=== PATIENT | male | born 1960 | race Caucasian/White ===

== ENCOUNTER 2017-05-12 09:11 | Inpatient (IN) | payer BC, OTHER ==
[~2017-05-12] VITALS: Ht 179.1 cm; Wt 105.4 kg
[~2017-05-12 09:11] MED LIST: AMOX875T20 PO; DIOV40TA PO; SYNT25TA PO; ZOVI400T15 PO
[2017-05-12 09:27] VITALS: BP 147/75; PULSE 94; RESP 16; TEMP 99.9; O2SAT 96
[2017-05-12] MEDS ORDERED: thyroid med (09:37)
[2017-05-12] MEDS ORDERED: htn med (09:37)
[2017-05-12] MEDS ORDERED: SODIUM CHLOR 0.9% 1000 ML INJ 1,000 ML IV SCH (09:41)
--- NOTE | 2017-05-12 09:44 | PD ---
HPI Chief Complaint: Back/ Neck Pain or Injury Time Seen by Provider: 09:35 Travel History International Travel<30 days: No Contact w/Intl Traveler<30days: No Traveled to known affect area: No History of Present Illness HPI This is a 56-year-old male who presents for evaluation. He reports that 4 days ago he developed some diarrhea and mild pain in his lower abdomen and back. The diarrhea resolved after one day but he is been primarily on the liquid diet since then. He is now having pain kind of focally localized to the right lower back and abdomen. He's been having chills at home as well. Pain is an aching pain which is constant, no aggravating or alleviating factors. He denies any nausea, vomiting, constipation, testicular or scrotal pain, dysuria. His primary care physician is Dr. Yao. [facility] Past Medical History Diminished Hearing: No Hypertension: Yes Past Surgical History Tonsillectomy: Yes ( A CHILD) Other Surgery: Yes (INGUINAL HERNIA REPAIR) Social History Alcohol Use: Yes (OCCASIONALLY) Tobacco Use: No Substance Use: No Allergies-Medications (Allergen,Severity, Reaction): Coded Allergies: No Known Allergies (Verified Adverse Reaction, Unknown, 05/12/17) Reported Meds & Prescriptions Reported Meds & Active Scripts Active Reported [thyroid med] [htn med] Review of Systems Except as stated in HPI: all other systems reviewed are Neg Physical Exam Narrative GENERAL: Well-developed well-nourished male in no acute distress SKIN: Warm and dry. HEAD: Atraumatic. Normocephalic. EYES: Pupils equal and round. No scleral icterus. No injection or drainage. ENT: No nasal bleeding or discharge. Mucous membranes pink and moist. NECK: Trachea midline. No JVD. CARDIOVASCULAR: Regular rate and rhythm. No murmur appreciated. RESPIRATORY: No accessory muscle use. Clear to auscultation. Breath sounds equal bilaterally. GASTROINTESTINAL: Abdomen soft, focal right lower quadrant tenderness without guarding. No CVA tenderness. MUSCULOSKELETAL: No obvious deformities. No edema. No tenderness to palpation to the back. NEUROLOGICAL: Awake and alert. No obvious cranial nerve deficits. Motor grossly within normal limits. Normal speech. PSYCHIATRIC: Appropriate mood and affect; insight and judgment normal. Data Data Last Documented VS Vital Signs Date Time Temp Pulse Resp B/P (MAP) Pulse Ox O2 Delivery O2 Flow Rate FiO2 05/12/17 09:55 96 05/12/17 09:27 99.9 94 16 147/75 (99) Orders Orders Complete Blood Count With Diff (05/12/17 09:41) Comprehensive Metabolic Panel (05/12/17 09:41) Lipase (05/12/17 09:41) Urinalysis - C+S If Indicated (05/12/17 09:41) Ct Abd/Pel W Iv Contrast(Rout) (05/12/17 09:41) Iv Access Insert/Monitor (05/12/17 09:41) Ecg Monitoring (05/12/17 09:41) Oximetry (05/12/17 09:41) Sodium Chloride 0.9% Flush (Ns Flush) (05/12/17 09:45) Sodium Chlor 0.9% 1000 Ml Inj (Ns 1000 M (05/12/17 09:41) Iohexol 350 Inj (Omnipaque 350 Inj) (05/12/17 10:34) Act Partial Throm Time (Ptt) (05/12/17 10:43) Prothrombin Time / Inr (Pt) (05/12/17 10:43) Piperacil-Tazo 4.5 Gm Premix (Zosyn 4.5 (05/12/17 11:15) Electrocardiogram (05/12/17 ) Consult General Surgery (05/12/17 ) (Hub Use Only)Inp Phy Cons/Ref (05/12/17 ) Admit Order (Ed Use Only) (05/12/17 12:03) Labs Laboratory Tests Test 05/12/17 09:45 05/12/17 10:50 White Blood Count 18.0 TH/MM3 Red Blood Count 4.26 MIL/MM3 Hemoglobin 14.8 GM/DL Hematocrit 42.4 % Mean Corpuscular Volume 99.5 FL Mean Corpuscular Hemoglobin 34.7 PG Mean Corpuscular Hemoglobin Concent 34.9 % Red Cell Distribution Width 11.8 % Platelet Count 149 TH/MM3 Mean Platelet Volume 9.1 FL CBC Comment AUTO DIFF Differential Total Cells Counted 100 Neutrophils % (Manual) 82 % Lymphocytes % 11 % Monocytes % 7 % Neutrophils # (Manual) 14.8 TH/MM3 Differential Comment FINAL DIFF MANUAL Platelet Estimate NORMAL Platelet Morphology Comment NORMAL Red Cell Morphology Comment NORMAL Urine Color YELLOW Urine Turbidity CLEAR Urine pH 6.0 Urine Specific [place] 1.005 Urine Protein NEG mg/dL Urine Glucose (UA) NEG mg/dL Urine Ketones NEG mg/dL Urine Occult Blood TRACE Urine Nitrite NEG Urine Bilirubin NEG Urine Leukocyte Esterase NEG Urine WBC 0-2 /hpf Microscopic Urinalysis Comment CULT NOT INDICATED Blood Urea Nitrogen 13 MG/DL Creatinine 1.30 MG/DL Random Glucose 178 MG/DL Total Protein 8.3 GM/DL Albumin 3.7 GM/DL Calcium Level 8.9 MG/DL Alkaline Phosphatase 48 U/L Aspartate Amino Transf (AST/SGOT) 28 U/L Alanine Aminotransferase (ALT/SGPT) 58 U/L Total Bilirubin 1.6 MG/DL Sodium Level 132 MEQ/L Potassium Level 3.9 MEQ/L Chloride Level 97 MEQ/L Carbon Dioxide Level 27.0 MEQ/L Anion Gap 8 MEQ/L Estimat Glomerular Filtration Rate 57 ML/MIN Lipase 146 U/L Prothrombin Time 12.7 SEC Prothromb Time International Ratio 1.1 RATIO Activated Partial Thromboplast Time 31.0 SEC MDM Medical Decision Making Medical Screen Exam Complete: Yes Emergency Medical Condition: Yes Medical Record Reviewed: Yes Differential Diagnosis Appendicitis, gastroenteritis, ureteral stone, pyelonephritis, muscle strain, shingles, colitis Narrative Course On examination the patient has focal right lower quadrant tenderness with no other reproducible pain on palpation. Certainly, given his myalgias and low- grade fevers, appendicitis would be on the differential. Plan is for lab work, urinalysis, CT abdomen and pelvis. CT abdomen and pelvis reveals CONCLUSION: 1. Acute appendicitis with an obstructing appendicolith and significant periappendiceal inflammation and fluid stranding. 2. Advanced hepatic steatosis. 3. 12 mm right renal cyst. The patient has a WBC count of 18. The patient was given Zosyn, IV fluids. The patient was admitted to the hospitalist, discussed with the surgeon. Diagnosis Primary Impression: Appendicitis Qualified Codes: K35.80 - Unspecified acute appendicitis Admitting Information Admitting Physician Requests: Mg Valentino May 12, 2017 09:44
[2017-05-12] MEDS ORDERED: SODIUM CHLORIDE 0.9% FLUSH 10 ML FLUSH IV FLUSH PRN ×2 (09:45→12:15)
[2017-05-12 09:55] VITALS: O2SAT 96
[2017-05-12 09:55] LABS: GLUCOSE,URINE NEG (NEG); HEMATOCRIT 42.4 % (39.0-51.0); KETONE, URINE NEG (NEG); MEAN CELL VOLUME 99.5 FL (80.0-100.0); MEAN CORPUSCULAR HEMOGLOBIN 34.7 PG (27.0-34.0); MEAN CORPUSCULAR HGB CONC 34.9 % (32.0-36.0); NITRITE,URINE NEG (NEG); PLATELET COUNT 149 TH/MM3 (150-450); RED BLOOD COUNT 4.26 MIL/MM3 (4.50-5.90); RED CELL DISTRIBUTION WIDTH 11.8 % (11.6-17.2)
[2017-05-12 09:56] LABS: HEMO FLAGS AUTO DIFF
[2017-05-12 10:01] LABS: BLOOD, URINE TRACE (NEG)
[2017-05-12 10:02] LABS: URINE COLOR YELLOW (YELLW/STRAW)
[2017-05-12 10:04] LABS: COMMENT (UR) CULT NOT INDICATED; CULTURE IF INDICATED CULT NOT INDICATED; WBC, URINE 0-2 /hpf (0-5)
[2017-05-12 10:14] LABS: ANION GAP 8 MEQ/L (5-15); CHLORIDE 97 MEQ/L (98-107); POTASSIUM 3.9 MEQ/L (3.5-5.1); SODIUM (NA) 132 MEQ/L (136-145)
[2017-05-12 10:15] LABS: ALT (GPT) 58 U/L (12-78)
[2017-05-12 10:16] LABS: AST (GOT) 28 U/L (15-37); BLOOD UREA NITROGEN 13 MG/DL (7-18); GLOMERULAR FILTRATION RATE 57 ML/MIN (>89)
[2017-05-12 10:18] LABS: ALKALINE PHOSPHATASE 48 U/L (45-117)
[2017-05-12 10:25] LABS: TOTAL BILIRUBIN ADULT 1.6 MG/DL (0.2-1.0)
[2017-05-12 10:26] LABS: NEUTROPHIL # MANUAL DIFF 14.8 TH/MM3 (1.8-7.7); POLYS (SEG NEUTROPHILS) 82 % (16-70); WBC DIFF SAMPLE 100
[2017-05-12 10:27] LABS: PLATELET MORPHOLOGY NORMAL (NORMAL)
[2017-05-12 10:28] LABS: PLATELET ESTIMATE SMEAR NORMAL (NORMAL); SCAN/DIFF FINAL DIFF MANUAL
[2017-05-12] MEDS ORDERED: IOHEXOL 350 MG/ML 10 ML VIAL (for RAD DIAG) IVCONTRAST ONE (10:34)
--- NOTE | 2017-05-12 11:08 | RADRPT ---
EXAM DATE/TIME: 05/12/2017 10:28 [place] COMPARISON: No previous studies available for comparison. INDICATIONS : Right lower quadrant and right low back pain, diarrhea x 4 days. IV CONTRAST: 85 cc Omnipaque 350 (iohexol) IV ORAL CONTRAST: No oral contrast ingested. RADIATION DOSE: 20.60 CTDIvol (mGy) MEDICAL HISTORY : Hypertension. SURGICAL HISTORY : Inguinal hernia repair. ENCOUNTER: Initial ACUITY: 4 - 6 days PAIN SCALE: 7/10 LOCATION: Right lower quadrant TECHNIQUE: Volumetric scanning of the abdomen and pelvis was performed. Using automated exposure control and ad justment of the mA and/or kV according to patient size, radiation dose was kept as low as reasonably achievable to obtain optimal diagnostic quality images. DICOM format image data is available electro nically for review and comparison. FINDINGS: LOWER LUNGS: The visualized lower lungs are clear. LIVER: The liver is diffusely hypodense. There no focal lesions or evidence of biliary duct dilatation. Ther e are no calcified stones. SPLEEN: Normal size without lesion. PANCREAS: Within normal limits. KIDNEYS: Normal in size and shape. There is no mass, stone or hydronephrosis. 12 mm cyst is identified in the right kidney. ADRENAL GLANDS: Within normal limits. VASCULAR: There is no aortic aneurysm. BOWEL/MESENTERY: Extensive pericecal and periappendiceal inflammation and fluid stranding is identified in right lower quadrant. A calculus is identified in the proximal appendix. The distal appendix is dilated and demo nstrates diffuse wall thickening. Measures 1.7 cm in diameter. There is no evidence of free air. Inte stinal tract is otherwise unremarkable. ABDOMINAL WALL: Within normal limits. RETROPERITONEUM: There is no lymphadenopathy. BLADDER: No wall thickening or mass. REPRODUCTIVE: Within normal limits. INGUINAL: There is no lymphadenopathy or hernia. MUSCULOSKELETAL: Within normal limits for patient age. CONCLUSION: 1. Acute appendicitis with an obstructing appendicolith and significant periappendiceal inflammation and fluid stranding. 2. Advanced hepatic steatosis. 3. 12 mm right renal cyst. Crow Quintana MD on May 12, 2017 at 11:01 Board Certified Radiologist. This report was verified electronically.
[2017-05-12 11:09] LABS: INTERNATIONAL NORMALIZED RATIO 1.1 RATIO; PROTHROMBIN TIME - PATIENT 12.7 SEC (9.8-11.6)
[2017-05-12] MEDS ORDERED: PIPERACIL-TAZO 4.5 GM PREMIX 100 ML IV ONE (11:15)
[2017-05-12] MEDS ORDERED: ONDANSETRON HCL 4 MG/2 ML VIAL IVP PRN (12:15)
[2017-05-12] MEDS ORDERED: MORPHINE SULFATE 8 MG/ML INJ IV PUSH PRN ×2 (12:15→12:30)
[2017-05-12] MEDS ORDERED: NALOXONE HCL 0.4 MG/ML AMP IV PUSH PRN ×2 (12:15)
[2017-05-12] MEDS ORDERED: MAGNESIUM HYDROXIDE SUSP 30 ML CUP PO PRN (12:15)
[2017-05-12] MEDS ORDERED: SENNOSIDES 8.6 MG TAB PO PRN (12:15)
[2017-05-12] MEDS ORDERED: LACTULOSE SYRUP 20 GM/30 ML CUP PO PRN (12:15)
[2017-05-12] MEDS ORDERED: BISACODYL 10 MG SUPP RECTAL PRN (12:15)
[2017-05-12] MEDS ORDERED: MORPHINE SULFATE 4 MG/ML INJ IV PUSH PRN (12:15)
[2017-05-12] MEDS ORDERED: MORPHINE SULFATE 2 MG/ML INJ IV PUSH PRN (12:45)
[2017-05-12] MEDS ORDERED: BUPIVACAINE/EPINEPHRINE 0.5% PF 30 ML VIAL ONE (13:41)
[2017-05-12] MEDS ORDERED: LEVO75TA3 PO (13:45)
[2017-05-12] MEDS ORDERED: LISI20TA PO (13:45)
[2017-05-12] MEDS ORDERED: FAMOTIDINE 20 MG/2 ML VIAL ONE (14:13)
[2017-05-12] MEDS ORDERED: MIDAZOLAM HCL 2 MG/2 ML VIAL ONE (14:13)
[2017-05-12] MEDS ORDERED: LACTATED RINGER'S 1000 ML INJ 1,000 ML ONE (14:13)
--- NOTE | 2017-05-12 14:23 | HHI.PR ---
Immediate Post Op Note Procedure Date: May 12, 2017 Pre Op Diagnosis: acute appendicitis Post Op Diagnosis: same Surgeon: Jack Dee MD Grease Cup Filler(s): see or sheet Procedure: lap appy Findings: distended inflamed appendix Complications: none Specimen(s) removed: appendix Estimated blood loss: 5cc Anesthesia: General IVF Patient to: PACU Patient Condition: Good Jack Dee MD May 12, 2017 14:23
[2017-05-12 15:15] VITALS: BP 130/63; PULSE 80; RESP 20; TEMP 100.1; O2SAT 96
[2017-05-12 15:54] VITALS: PULSE 98
[2017-05-12] MEDS ORDERED: ACETAMINOPHEN 1000 MG/100 ML 100 ML IV ONE (16:04)
[2017-05-12] MEDS ORDERED: *Lactated Ringer's INJ 1,000 ML ONE (17:16)
[2017-05-12] MEDS: SODIUM CHLOR 0.9% 1000 ML INJ 1,000 ML IV SCH (18:07)
--- NOTE | 2017-05-12 18:16 | HHI.HP ---
[facility] Ronnie Elizabeth MD Admission Diagnosis acute appendicitis Diagnoses: Travel History International Travel<30 Days: No Contact w/Intl Traveler <30 Da: No Traveled to Known Affected Are: No History of Present Illness 56-year-old male with a history of hypertension, hypothyroidism, who presents with a four-day history of worsening crampy nonradiating right lower quadrant pain. He denies any nausea or vomiting however does report decreased appetite, as well as unmeasured fevers over the past 3 days. Ports initially having diarrhea 4 days ago, however this resolved. Denies any chest pain or shortness of breath. Patient has had appendectomy today, and says that his pain has subsequently much improved. Review of Systems Except as stated in HPI: all other systems reviewed are Neg Past Family Social History Past Medical History Hypertension Hypothyroidism Past Surgical History Hernia repair Tonsillectomy Reported Medications Lisinopril/HCTZ 2011 0.5. One tablet by mouth daily Levothyroxine 75 g by mouth daily. Allergies: Coded Allergies: No Known Allergies (Verified Adverse Reaction, Unknown, 05/12/17) Family History Mother with history of stroke. Father with heart disease beginning at age 75. Both parents smoked heavily. Social History Lifelong nonsmoker. Social drinker less than 3 drinks. Denies any history of withdrawal. No illicit drugs. Physical Exam Vital Signs Vital Signs Date Time Temp Pulse Resp B/P (MAP) Pulse Ox O2 Delivery O2 Flow Rate FiO2 05/12/17 16:45 101.7 91 16 136/64 (88) 96 Nasal Cannula 3 05/12/17 16:30 94 16 141/68 (92) 94 Nasal Cannula 3 05/12/17 16:15 98 16 138/71 (93) 98 Simple Mask 5 05/12/17 16:00 88 16 137/69 (91) 98 Simple Mask 5 05/12/17 15:54 101.4 98 16 146/81 (102) 97 Simple Mask 5 05/12/17 15:54 98 05/12/17 15:15 100.1 80 20 130/63 (85) 96 05/12/17 13:37 104.1 112 20 155/80 (105) 95 05/12/17 09:55 96 05/12/17 09:27 99.9 94 16 147/75 (99) 96 Physical Exam GENERAL: This is a well-nourished, well-developed patient, in no apparent distress. Alert and oriented 3. SKIN: No rashes, ecchymoses or lesions. Cool and dry. HEAD: Atraumatic. Normocephalic. No temporal or scalp tenderness. EYES: Pupils equal round and reactive. Extraocular motions intact. No scleral icterus. No injection or drainage. ENT: Nose without bleeding, purulent drainage or septal hematoma. Throat without erythema, tonsillar hypertrophy or exudate. Uvula midline. Airway patent. NECK: Trachea midline. No JVD or lymphadenopathy. Supple, nontender, no meningeal signs. CARDIOVASCULAR: Regular rate and rhythm without murmurs, gallops, or rubs. RESPIRATORY: Clear to auscultation. Breath sounds equal bilaterally. No wheezes , rales, or rhonchi. GASTROINTESTINAL: Postoperative abdomen. LELA drain in place with serosanguineous fluid. Hypoactive bowel sounds. Nontender to moderate palpation. MUSCULOSKELETAL: Extremities without clubbing, cyanosis, or edema. No joint tenderness, effusion, or edema noted. No calf tenderness. Negative Homans sign bilaterally. NEUROLOGICAL: Awake and alert. Cranial nerves II through XII intact. Motor and sensory grossly within normal limits. Five out of 5 muscle strength in all muscle groups. Normal speech. Laboratory Laboratory Tests Test 05/12/17 09:45 05/12/17 10:50 05/12/17 12:32 White Blood Count 18.0 Red Blood Count 4.26 Hemoglobin 14.8 Hematocrit 42.4 Mean Corpuscular Volume 99.5 Mean Corpuscular Hemoglobin 34.7 Mean Corpuscular Hemoglobin Concent 34.9 Red Cell Distribution Width 11.8 Platelet Count 149 Mean Platelet Volume 9.1 CBC Comment AUTO DIFF Differential Total Cells Counted 100 Neutrophils % (Manual) 82 Lymphocytes % 11 Monocytes % 7 Neutrophils # (Manual) 14.8 Differential Comment FINAL DIFF MANUAL Platelet Estimate NORMAL Platelet Morphology Comment NORMAL Red Cell Morphology Comment NORMAL Urine Color YELLOW Urine Turbidity CLEAR Urine pH 6.0 Urine Specific [place] 1.005 Urine Protein NEG Urine Glucose (UA) NEG Urine Ketones NEG Urine Occult Blood TRACE Urine Nitrite NEG Urine Bilirubin NEG Urine Leukocyte Esterase NEG Urine WBC 0-2 Microscopic Urinalysis Comment CULT NOT INDICATED Blood Urea Nitrogen 13 Creatinine 1.30 Random Glucose 178 Total Protein 8.3 Albumin 3.7 Calcium Level 8.9 Alkaline Phosphatase 48 Aspartate Amino Transf (AST/SGOT) 28 Alanine Aminotransferase (ALT/SGPT) 58 Total Bilirubin 1.6 Sodium Level 132 Potassium Level 3.9 Chloride Level 97 Carbon Dioxide Level 27.0 Anion Gap 8 Estimat Glomerular Filtration Rate 57 Lipase 146 Prothrombin Time 12.7 Prothromb Time International Ratio 1.1 Activated Partial Thromboplast Time 31.0 Lactic Acid Level 1.3 Result Diagram: 05/12/1745 05/12/1745 Imaging Last Impressions Abdomen/Pelvis CT 05/12/17940 Signed Impressions: Service Date/Time: May 10:28 - CONCLUSION: 1. Acute appendicitis with an obstructing appendicolith and significant periappendiceal inflammation and fluid stranding. 2. Advanced hepatic steatosis. 3. 12 mm right renal cyst. MD Johnson Senior VTE Risk Assessment Caprini VTE Risk Assessment: No/Low Risk (score <= 1) Caprini Risk Assessment Model Point Value = 1 Point Value = 2 Point Value = 3 Point Value = 5 Age 41-60 Minor surgery BMI > 25 kg/m2 Swollen legs Varicose veins or History of unexplained or recurrent spontaneous Oral contraceptives or hormone replacement Sepsis (< 1 month) Serious lung disease, including pneumonia (< 1 month) Abnormal pulmonary function Acute myocardial infarction Congestive heart failure (< 1 month) History of inflammatory bowel disease Medical patient at bed rest Age 61-74 Arthroscopic surgery Major open surgery (> 45 min) Laparoscopic surgery (> 45 min) Malignancy Confined to bed (> 72 hours) Immobilizing plaster cast Central venous access Age >= 75 History of VTE Family history of VTE Factor V Leiden Prothrombin [id number] Lupus anticoagulant Anticardiolipin antibodies Elevated serum homocysteine Heparin-induced thrombocytopenia Other congenital or acquired thrombophilia Stroke (< 1 month) Elective arthroplasty Hip, pelvis, or leg fracture Acute spinal cord injury (< 1 month) Prophylaxis Regimen Total Risk Factor Score Risk Level Prophylaxis Regimen 0-1 Low Early ambulation 2 Moderate Order ONE of the following: *Sequential Compression Device (SCD) *Heparin 5000 units SQ BID 3-4 Higher Order ONE of the following medications: *Heparin 5000 units SQ TID *Enoxaparin/Lovenox 40 mg SQ daily (WT < 150 kg, CrCl > 30 mL/min) *Enoxaparin/Lovenox 30 mg SQ daily (WT < 150 kg, CrCl > 10-29 mL/min) *Enoxaparin/Lovenox 30 mg SQ BID (WT < 150 kg, CrCl > 30 mL/min) AND/OR *Sequential Compression Device (SCD) 5 or more Highest Order ONE of the following medications: *Heparin 5000 units SQ TID (Preferred with Epidurals) *Enoxaparin/Lovenox 40 mg SQ daily (WT < 150 kg, CrCl > 30 mL/min) *Enoxaparin/Lovenox 30 mg SQ daily (WT < 150 kg, CrCl > 10-29 mL/min) *Enoxaparin/Lovenox 30 mg SQ BID (WT < 150 kg, CrCl > 30 mL/min) AND *Sequential Compression Device (SCD) Assessment and Plan Assessment and Plan //Sepsis Leukocytosis 18, tachycardia 112 on admission, fever 104.1 on admission. Acute appendicitis on CT. -Lactate 1.3 on admission. -IDSA does not recommend blood cultures on patients with intra-abdominal infection. -Continue Zosyn. IV fluids. //Acute appendicitis. -CT as above with stranding. -Status post appendectomy. -LLEA drain in place. -General surgery following. Follow-up for return of bowel function. //Hypertension. Blood pressure currently acceptable. We'll hold off on blood pressure meds in the setting of sepsis. Continue to monitor //Hypothyroidism. Chronic. -Check TSH. Continue home Synthroid. //Elevated bilirubin. Check bilirubin components. This could be Gilbert secondary to decreased by mouth intake. //Hepatic steatosis. -Suspect this is chronic ZAVALETA . Would recommend discontinuation of alcohol completely. Follow with primary care as outpatient. //Hypoglycemia on admission. 175. Check A1c. //DVT prophylaxis. SCDs. AC As per surgical service. Discussed Condition With Patient, nurse, ED physician. Physician Certification 2 Midnight Certification Type: Admission for Inpatient Services Order for Inpatient Services The services are ordered in accordance with Medicare regulations or non- Medicare payer requirements, as applicable. In the case of services not specified as inpatient-only, they are appropriately provided as inpatient services in accordance with the 2-midnight benchmark. Estimated LOS (days): 2 days is the estimated time the patient will need to remain in the hospital, assuming treatment plan goals are met and no additional complications. Post-Hospital Plan: Home Jerry Saleem MD May 12, 2017 18:15
[2017-05-12] MEDS: PIPERACIL-TAZO 3.375 GM PREMIX 50 ML IV SCH (18:22)
[2017-05-12 18:28] LABS: INDIRECT BILIRUBIN 1.2 MG/DL (0.0-0.8)
[2017-05-12 20:00] VITALS: BP_SYST 112; BP_SYST 96; BP_DIAS 52; BP_DIAS 57; PULSE 63; PULSE 78; RESP 16; TEMP 97.8; TEMP 98; O2SAT 96; O2SAT 98
[2017-05-12] MEDS: SODIUM CHLORIDE 0.9% FLUSH 10 ML FLUSH IV FLUSH SCH (21:00)
--- NOTE | 2017-05-12 21:28 | MB ---
cc: ELLI RAYMOND MD DATE OF CONSULTATION 05/12/2017 REASON FOR CONSULTATION Right lower quadrant abdominal pain, acute appendicitis. HISTORY OF PRESENT ILLNESS The patient is 56-year-old male who presents with acute onset of right lower quadrant pain. He states the pain started approximately 4 days ago, continued to get worse, currently is 7/10, was an 8/10, some improvement with IV pain medications, better with lying still, worse with movement. The pain is somewhat sharp. He has never had pain quite like this before. He does have some intermittent fevers. He came to the emergency department for further evaluation including WBC of 18,000. A CT scan showing acute appendicitis. Therefore, surgery was consulted for further evaluation. PAST MEDICAL HISTORY Hypertension. PAST SURGICAL HISTORY Tonsillectomy, bilateral inguinal hernia repair. SOCIAL HISTORY Occasional EtOH. Denies smoking or IVDA. ALLERGIES NO KNOWN DRUG ALLERGIES. MEDICATIONS See EMR. FAMILY HISTORY Denies diabetes or hypertension. REVIEW OF SYSTEMS GENERAL: Complains of fevers and chills. HEENT: Denies eye pain, ear pain. NECK: Denies swelling or pain. LUNGS: Denies cough or wheeze. HEART: Denies palpitation or chest pain. ABDOMEN: Complains of abdominal pain. Denies nausea or vomiting. : Denies dysuria, hematuria. ENDOCRINE: Denies polyuria, polydipsia. ___ hypothyroid. NEUROLOGIC: Denies numbness, tingling. INTEGUMENT: Denies any new masses or lesions. PHYSICAL EXAMINATION GENERAL: The patient no acute distress. VITAL SIGNS: Temperature 99.9, pulse 94, respirations 16, blood pressure 147/75, saturation 96%. HEENT: PERRLA, pupils equal, round, reactive. NECK: Supple. Trachea midline. LUNGS: Clear to auscultation bilateral expansion. HEART: S1-S2 regular rhythm. ABDOMEN: Positive tenderness to palpation right lower quadrant, localize rebound. Well-healed bilateral inguinal surgical scars. EXTREMITIES: Warm, well-perfused. INTEGUMENT: No obvious masses or lesions. BACK: Normal curve. No step-off. NEUROLOGIC: GCS of 15, 5/5 motor all extremities. PSYCH: Appropriate mood. Appropriate affect. LABORATORY AND DIAGNOSTIC DATA WBC 18,000, hemoglobin 14.8, hematocrit 42.4, platelets 149, sodium 132, potassium 3.9, chloride 97, BUN 13, creatinine 1.3, lactate 1.3, AST 28, ALT 58, alkaline phosphatase 48, lipase 146. INR 1.1. IMAGING STUDIES CT reviewed by me showing acute appendicitis, some straining inflammation. No obvious abscess. ASSESSMENT The patient is a 56-year-old male, acute onset right lower quadrant pain consistent with acute appendicitis. PLAN After full clinical, radiologic, laboratory workup the patient with above-named issues including acute appendicitis. Discussed with the patient in detail regarding operative intervention and the need for a laparoscopic appendectomy. Further discussed with the patient given the long duration of timing that the patient may have already perforated his appendix. If this is the case discussed with the patient that he will probably need to be in the hospital for a few extra days and a possible LELA drain placement. However, we are unsure of this until actually the time of surgery. Currently, the patient is n.p.o., IV fluids, pain control, IV antibiotics and again will plan to take the patient to the operating room for laparoscopic appendectomy. MD PRAFUL Li/MIRIAM /5:31 PM /9:17 PM
[2017-05-12 21:54] LABS: HEMOGLOBIN A1a 1.3 %; HEMOGLOBIN A1b 0.8 %; HEMOGLOBIN Ao 84.1 %; HEMOGLOBIN F 0.9 %; HEMOGLOBIN LA1C 2.2 %; HEMOGLOBIN P3 3.7 %
[2017-05-13] VITALS: BP 96/52; PULSE 63; RESP 16; TEMP 98; O2SAT 98
[2017-05-13] MEDS: PIPERACIL-TAZO 3.375 GM PREMIX 50 ML IV SCH ×3 (00:02→12:00)
[2017-05-13 04:00] VITALS: BP 110/65; PULSE 68; RESP 16; TEMP 98; O2SAT 98
[2017-05-13] MEDS: SODIUM CHLOR 0.9% 1000 ML INJ 1,000 ML IV SCH ×2 (05:05→08:03)
[2017-05-13] MEDS ORDERED: LEVOTHYROXINE SODIUM 75 MCG TAB PO SCH (06:00)
[2017-05-13] MEDS ORDERED: LEVA500T33 PO (07:53)
--- NOTE | 2017-05-13 08:05 | HHI.PR ---
cc: Jack Dee MD Subjective Subjective Notes DAILY PROGRESS NOTE FOR SURGICAL ATTENDING, DR. JI FOSTER Doing well Pain improved Objective Vitals/I&O Vital Signs Date Time Temp Pulse Resp B/P (MAP) Pulse Ox O2 Delivery O2 Flow Rate FiO2 05/13/17 04:00 98.0 68 16 110/65 (80) 98 05/12/17 16:45 Nasal Cannula 3 Labs Laboratory Tests Test 05/12/17 09:45 05/12/17 10:50 05/12/17 12:32 05/13/17 07:45 Mean Corpuscular Volume 99.5 FL Mean Corpuscular Hemoglobin 34.7 PG Mean Corpuscular Hemoglobin Concent 34.9 % Red Cell Distribution Width 11.8 % Mean Platelet Volume 9.1 FL CBC Comment AUTO DIFF Differential Total Cells Counted 100 Neutrophils % (Manual) 82 % Lymphocytes % 11 % Monocytes % 7 % Neutrophils # (Manual) 14.8 TH/MM3 Platelet Estimate NORMAL Platelet Morphology Comment NORMAL Red Cell Morphology Comment NORMAL Urine Color YELLOW Urine Turbidity CLEAR Urine pH 6.0 Urine Specific Desmet 1.005 Urine Protein NEG mg/dL Urine Glucose (UA) NEG mg/dL Urine Ketones NEG mg/dL Urine Occult Blood TRACE Urine Nitrite NEG Urine Bilirubin NEG Urine Leukocyte Esterase NEG Urine WBC 0-2 /hpf Microscopic Urinalysis Comment CULT NOT INDICATED Estimat Glomerular Filtration Rate 57 ML/MIN Hemoglobin A1c 6.8 % Blood Urea Nitrogen 13 MG/DL Creatinine 1.30 MG/DL Random Glucose 178 MG/DL Total Protein 8.3 GM/DL Albumin 3.7 GM/DL Calcium Level 8.9 MG/DL Alkaline Phosphatase 48 U/L Aspartate Amino Transf (AST/SGOT) 28 U/L Alanine Aminotransferase (ALT/SGPT) 58 U/L Total Bilirubin 1.6 MG/DL Direct Bilirubin 0.4 MG/DL Sodium Level 132 MEQ/L Potassium Level 3.9 MEQ/L Chloride Level 97 MEQ/L Carbon Dioxide Level 27.0 MEQ/L Indirect Bilirubin 1.2 MG/DL Lipase 146 U/L Thyroid Stimulating Hormone 3rd Gen 1.350 uIU/ML Prothrombin Time 12.7 SEC Prothromb Time International Ratio 1.1 RATIO Activated Partial Thromboplast Time 31.0 SEC Lactic Acid Level 1.3 mmol/L Laboratory Tests Test 05/12/17 09:45 05/12/17 10:50 05/12/17 12:32 05/13/17 07:45 White Blood Count 18.0 Red Blood Count 4.26 Hemoglobin 14.8 Hematocrit 42.4 Mean Corpuscular Volume 99.5 Mean Corpuscular Hemoglobin 34.7 Mean Corpuscular Hemoglobin Concent 34.9 Red Cell Distribution Width 11.8 Platelet Count 149 Mean Platelet Volume 9.1 CBC Comment AUTO DIFF Differential Total Cells Counted 100 Neutrophils % (Manual) 82 Lymphocytes % 11 Monocytes % 7 Neutrophils # (Manual) 14.8 Differential Comment FINAL DIFF MANUAL Platelet Estimate NORMAL Platelet Morphology Comment NORMAL Red Cell Morphology Comment NORMAL Urine Color YELLOW Urine Turbidity CLEAR Urine pH 6.0 Urine Specific Desmet 1.005 Urine Protein NEG Urine Glucose (UA) NEG Urine Ketones NEG Urine Occult Blood TRACE Urine Nitrite NEG Urine Bilirubin NEG Urine Leukocyte Esterase NEG Urine WBC 0-2 Microscopic Urinalysis Comment CULT NOT INDICATED Blood Urea Nitrogen 13 Creatinine 1.30 Random Glucose 178 Total Protein 8.3 Albumin 3.7 Calcium Level 8.9 Alkaline Phosphatase 48 Aspartate Amino Transf (AST/SGOT) 28 Alanine Aminotransferase (ALT/SGPT) 58 Total Bilirubin 1.6 Direct Bilirubin 0.4 Sodium Level 132 Potassium Level 3.9 Chloride Level 97 Carbon Dioxide Level 27.0 Anion Gap 8 Estimat Glomerular Filtration Rate 57 Hemoglobin A1c 6.8 Indirect Bilirubin 1.2 Lipase 146 Thyroid Stimulating Hormone 3rd Gen 1.350 Prothrombin Time 12.7 Prothromb Time International Ratio 1.1 Activated Partial Thromboplast Time 31.0 Lactic Acid Level 1.3 Radiology Last Impressions Abdomen/Pelvis CT 05/12/17 0941 Signed Impressions: Service Date/Time: , May 12, 2017 10:28 - CONCLUSION: 1. Acute appendicitis with an obstructing appendicolith and significant periappendiceal inflammation and fluid stranding. 2. Advanced hepatic steatosis. 3. 12 mm right renal cyst. Crow Quintana MD Cardiovascular: Regular Lungs: Clear Abdomen: Other, Post-op tenderness (LELA in place) Extremities: Perfused, SCD's on A/P Problem List: (1) Status post laparoscopic appendectomy ICD Codes: Z90.49 - Acquired absence of other specified parts of digestive tract (2) Appendicitis ICD Codes: K37 - Unspecified appendicitis Status: Acute Assessment and Plan A 56-year-old gentleman status post laparoscopic appendectomy Doing well Fair amount of output and LELA We'll give prescription prescription for pain and antibiotic therapy See if he does okay today possible discharge later AFTERNOON Follow-up with Dr. eDe next week Discharge Planning Possible discharge in a 24 hours Attending Statement NOTE FOR SURGICAL ATTENDING, DR. JI D. RANDA I attest that I had a [id number] encounter with the patient on the same day, and personally performed and documented my assessment and findings in the medical record. The following services were provided during this hospital visit: Chart data review, vital sign assessments/reviewing monitor data Review of consultations notes if present. Medication orders/review and/or management Ordering and/or reviewing lab tests Ordering and/or interpreting/reviewing x-rays and/or diagnostic studies Care of the patient and discussion of the patient with the care team Documentation time To help prompt me to consider important information that might be impacting today's encounter and assessment, information from prior notes written by myself or my colleagues may have been "brought forward/copy and pasted" into today's note. Problem Qualifiers (1) Appendicitis: Qualified Codes: K35.3 - Acute appendicitis with localized peritonitis Ji Foster MD May 13, 2017 08:05
[2017-05-13 08:11] LABS: AUTOMATED NEUTROPHIL # 11.2 TH/MM3 (1.8-7.7); BASOPHIL % 0.2 % (0.0-2.0); EOSINOPHIL % 0.1 % (0.0-4.0); HEMATOCRIT 36.5 % (39.0-51.0); LYMPH % 7.8 % (9.0-44.0); MEAN CELL VOLUME 100.2 FL (80.0-100.0); MEAN CORPUSCULAR HEMOGLOBIN 34.7 PG (27.0-34.0); MEAN CORPUSCULAR HGB CONC 34.7 % (32.0-36.0); MONO % 8.5 % (0.0-8.0); NEUT % 83.4 % (16.0-70.0); PLATELET COUNT 137 TH/MM3 (150-450); RED BLOOD COUNT 3.64 MIL/MM3 (4.50-5.90); WHITE BLOOD COUNT 13.3 TH/MM3 (4.0-11.0)
[2017-05-13 08:13] LABS: CHLORIDE 101 MEQ/L (98-107); POTASSIUM 3.8 MEQ/L (3.5-5.1); SODIUM (NA) 136 MEQ/L (136-145)
[2017-05-13 08:18] LABS: HEMO FLAGS AUTO DIFF
[2017-05-13 08:26] VITALS: BP 108/61; PULSE 73; RESP 18; TEMP 98; O2SAT 95
[2017-05-13 08:27] LABS: ALKALINE PHOSPHATASE 42 U/L (45-117); ALT (GPT) 42 U/L (12-78); ANION GAP 5 MEQ/L (5-15); AST (GOT) 19 U/L (15-37); BICARBONATE 29.7 MEQ/L (21.0-32.0); BLOOD UREA NITROGEN 19 MG/DL (7-18); GLOMERULAR FILTRATION RATE 57 ML/MIN (>89); TOTAL BILIRUBIN ADULT 1.1 MG/DL (0.2-1.0)
[2017-05-13] MEDS: SODIUM CHLORIDE 0.9% FLUSH 10 ML FLUSH IV FLUSH SCH (09:00)
--- NOTE | 2017-05-13 09:40 | MP ---
cc: ELLI DEE MD DATE OF SURGERY: 05/12/2017 PREOPERATIVE DIAGNOSIS Acute appendicitis. POSTOPERATIVE DIAGNOSIS Acute appendicitis. PROCEDURE PERFORMED Laparoscopic appendectomy. SURGEON Dr. Elli Dee. 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 ANESTHESIA General endotracheal. IV FLUIDS See anesthesia sheet. ESTIMATED BLOOD LOSS 10 cc. DRAINS 19 Armenian Darren drain. COMPLICATIONS None. WOUND CLASSIFICATION Contaminated. FINDINGS Distended, indurated and necrotic appendix with no overt perforation. INDICATION The patient is a 56-year-old male who presents with acute onset of right lower quadrant pain. He stated the pain was initially periumbilical and radiated to the right lower quadrant approximately four days ago. The pain continued to progress. The patient also had fevers. He came to the emergency department for further evaluation including CT scan showing acute appendicitis and also leukocytosis of 18,000, therefore a decision was made for laparoscopic appendectomy. DETAILS OF PROCEDURE The patient was taken to the operating suite and placed in supine position. He was prepped and draped in the usual sterile fashion after induction of general endotracheal anesthesia. A brief timeout was done stating correct patient, procedure and surgical site, and we were all in agreement with this. Attention was first directed to the umbilicus where a stab hernán incision made with an 11 blade after injection of local anesthetic. A Veress needle was used to insufflate the abdomen with confirmation of intra-abdominal placement prior with a saline drop test. The abdomen was insufflated with two liters of pneumoperitoneum. On cursory inspection, after changing the Veress needle to a 5 mm Visiport trocar, there was no evidence of injury. Two other trocars were placed, one 5 mm suprapubic followed by a left lower quadrant 12 mm trocar. The patient was placed in Trendelenburg and airplaned to the left. The right lower quadrant was identified. There was noted to be omentum draped over with several adhesions to the right lower quadrant. There was an obvious inflammatory and indurated process. Upon mobilization of the cecum we noted the appendix and also the terminal ileum sitting on top of this. Tedious dissection was done to mobilize the appendix from its adhesions and again somewhat necrotic and indurated looking. When this was done the base of the appendix was identified. A [place] was used to create a window at the mesoappendix at the base. A 35 Endo ANDREW stapler was used to transect the base of the mesoappendix using a white load. The mesoappendix was also transected as well. The appendix was placed in the appendix bag and removed from the left lower quadrant trocar. Suction irrigation was done until the affluent was clear and Bovie electrocautery was used to assure hemostasis. A 19 Armenian round Darren drain was placed in the suprapubic port site and placed in the right lower quadrant. The drain was secured with 2-0 nylon. The 12 mm port was closed with 0 Vicryl with a suture closure device. The rest of the ports were closed with 4-0 Monocryl subcuticular stitches. Sterile dressings were placed. The patient tolerated the procedure well. There was no intraoperative complications. All lap and instrument counts were correct at the end of the procedure. The patient was extubated and taken stable to the PACU. MD PRAFUL Li/CASTRO /3:46 PM /9:12 AM
[2017-05-13 10:26] LABS: BANDS 6 % (0-6); NEUTROPHIL # MANUAL DIFF 11.2 TH/MM3 (1.8-7.7); POLYS (SEG NEUTROPHILS) 78 % (16-70); WBC DIFF SAMPLE 100
[2017-05-13 10:27] LABS: DOHLE BODIES PRESENT (NONE SEEN); PLATELET ESTIMATE SMEAR LOW (NORMAL); PLATELET MORPHOLOGY NORMAL (NORMAL); ROULEAUX PRESENT (NORMAL); SCAN/DIFF FINAL DIFF MANUAL
[2017-05-13 12:22] VITALS: BP 126/66; PULSE 78; RESP 18; TEMP 99.3; O2SAT 98
[2017-05-13 16:00] VITALS: BP 125/82; PULSE 89; RESP 18; TEMP 98; O2SAT 99
[2017-05-13 16:42] VITALS: RESP 18
--- NOTE | 2017-05-13 18:26 | EKG ---
Date Performed: 05/12/2017 Time Performed: 11:21:57 PTAGE: 56 years EKG: Sinus rhythm POSSIBLE LEFT ATRIAL ENLARGEMENT NONSPECIFIC T-WAVE ABNORMALITY BORDERLINE ECG NO PREVIOUS TRACING DOCTOR: Indiana Villarreal Interpretating Date/Time 05/13/2017 18:18:20
--- NOTE | 2017-05-13 18:37 | HHI.PR ---
Subjective Remarks Patient says he is feeling great today. No pain. No chest pain or shortness of breath. He reports passing gas. Feels like going home. He says he has a flight on Tuesday, however subsequently he says he will cancel this. Objective Vital Signs Date Time Temp Pulse Resp B/P (MAP) Pulse Ox O2 Delivery O2 Flow Rate FiO2 05/13/17 16:42 18 05/13/17 16:00 98.0 89 18 125/82 (96) 99 05/13/17 12:22 99.3 78 18 126/66 (86) 98 05/13/17 10:47 18 05/13/17 08:26 98.0 73 18 108/61 (77) 95 05/13/17 04:00 98.0 68 16 110/65 (80) 98 05/13/17 00:00 98.0 63 16 96/52 (67) 98 05/12/17 20:00 97.8 78 16 112/57 (75) 96 I/O 05/12/17 05/12/17 05/12/17 05/13/17 05/13/17 05/13/17 07:00 15:00 23:00 07:00 15:00 23:00 Intake Total 400 ml 2600 ml 1614 ml 480 ml Output Total 370 ml 1430 ml Balance 400 ml 2230 ml 184 ml 480 ml Intake Oral 400 ml 360 ml 480 ml IV Total 400 ml 700 ml 1254 ml Other 1500 ml Output Urine Total 300 ml 1350 ml Drainage Total 60 ml 80 ml Estimated Blood Loss 10 ml # Voids 0 2 # Bowel Movements 0 Result Diagram: 05/13/17 0745 05/13/17 0745 Imaging Last Impressions Abdomen/Pelvis CT 05/12/17 0941 Signed Impressions: Service Date/Time: May 10:28 - CONCLUSION: 1. Acute appendicitis with an obstructing appendicolith and significant periappendiceal inflammation and fluid stranding. 2. Advanced hepatic steatosis. 3. 12 mm right renal cyst. Crow Quintana MD Objective Remarks GENERAL:sitting up in bed. Appears comfortable. Alert and oriented 3. SKIN: Warm and dry. HEAD: Normocephalic. EYES: No scleral icterus. No injection or drainage. NECK: Supple, trachea midline. No JVD. CARDIOVASCULAR: Regular rate and rhythm without murmurs, gallops, or rubs. RESPIRATORY: Breath sounds equal bilaterally. No accessory muscle use. GASTROINTESTINAL: Abdomen soft, non-tender, nondistended. LELA drain with small amount of serosanguineous fluid. MUSCULOSKELETAL: No cyanosis, or edema. BACK: Nontender without obvious deformity. No CVA tenderness. A/P Assessment and Plan //Sepsis Leukocytosis 18, tachycardia 112 on admission, fever 104.1 on admission. Acute appendicitis on CT. -Lactate 1.3 on admission. -IDSA does not recommend blood cultures on patients with intra-abdominal infection. -Continue Zosyn. IV fluids. = 05/13. Doing very well postoperative day one. Afebrile today. Vital signs stable. Leukocytosis improving 13.3. Minimal LELA drain output. Patient will be discharged with an biotics as per surgical recommendations. Will follow-up early next week for removal of LELA drain. //Acute appendicitis. -CT as above with stranding. -Status post appendectomy. -LELA drain in place. -General surgery following. Follow-up for return of bowel function. = Positive flatus. Cleared by general surgery for discharge. Follow-up with general surgery next week. Patient instructed on LELA drain. //Hypertension. Blood pressure currently acceptable. We'll hold off on blood pressure meds in the setting of sepsis. Continue to monitor = continue home blood pressure medications. //Hypothyroidism. Chronic. -TSH 1.35. Continue home Synthroid. //Indirect hyperbilirubinemia. This is Gilbert syndrome. Benign. //Hepatic steatosis. -Suspect this is chronic ZAVALETA . -Patient advised to discontinue alcohol completely. Weight loss also advised. -Patient informed and conveys understanding. Follow with primary care as outpatient. //Hypoglycemia on admission. 175. A1c 6.8. Patient is diabetic. I informed him of this. He will continue diet and lifestyle modifications will follow with primary care.. //DVT prophylaxis. SCDs. AC As per surgical service. Discharge Planning Discharge home. Follow-up with dental surgery next week for removal LELA drain. Jerry Saleem MD May 13, 2017 18:37
--- NOTE | 2017-05-13 18:42 | HHI.DS ---
Discharge Summary Admission Date May 12, 2017 at 12:04 Discharge Date: May 13, 2017 Admitting Diagnosis acute appendicitis (1) Sepsis ICD Code: A41.9 - Sepsis, unspecified organism (2) Appendicitis ICD Code: K37 - Unspecified appendicitis (3) Status post laparoscopic appendectomy ICD Code: Z90.49 - Acquired absence of other specified parts of digestive tract Procedures Laparoscopic appendectomy 05/12. Brief History - From Admission 56-year-old male with a history of hypertension, hypothyroidism, who presents with a four-day history of worsening crampy nonradiating right lower quadrant pain. He denies any nausea or vomiting however does report decreased appetite, as well as unmeasured fevers over the past 3 days. Ports initially having diarrhea 4 days ago, however this resolved. Denies any chest pain or shortness of breath. Patient has had appendectomy today, and says that his pain has subsequently much improved. CBC/BMP: 05/13/17 0745 05/13/17 0745 Significant Findings Laboratory Tests Test 05/12/17 09:45 05/12/17 10:50 05/12/17 12:32 05/13/17 07:45 White Blood Count 18.0 TH/MM3 (4.0-11.0) 13.3 TH/MM3 (4.0-11.0) Red Blood Count 4.26 MIL/MM3 (4.50-5.90) 3.64 MIL/MM3 (4.50-5.90) Mean Corpuscular Hemoglobin 34.7 PG (27.0-34.0) 34.7 PG (27.0-34.0) Platelet Count 149 TH/MM3 (150-450) 137 TH/MM3 (150-450) Neutrophils % (Manual) 82 % (16-70) 78 % (16-70) Neutrophils # (Manual) 14.8 TH/MM3 (1.8-7.7) 11.2 TH/MM3 (1.8-7.7) Random Glucose 178 MG/DL (74-106) 168 MG/DL (74-106) Total Protein 8.3 GM/DL (6.4-8.2) Total Bilirubin 1.6 MG/DL (0.2-1.0) 1.1 MG/DL (0.2-1.0) Direct Bilirubin 0.4 MG/DL (0.0-0.2) Sodium Level 132 MEQ/L (136-145) Chloride Level 97 MEQ/L (98-107) Estimat Glomerular Filtration Rate 57 ML/MIN (>89) 57 ML/MIN (>89) Hemoglobin A1c 6.8 % (4.3-6.0) Indirect Bilirubin 1.2 MG/DL (0.0-0.8) Prothrombin Time 12.7 SEC (9.8-11.6) Activated Partial Thromboplast Time 31.0 SEC (24.3-30.1) Hemoglobin 12.6 GM/DL (13.0-17.0) Hematocrit 36.5 % (39.0-51.0) Mean Corpuscular Volume 100.2 FL (80.0-100.0) Neutrophils (%) (Auto) 83.4 % (16.0-70.0) Lymphocytes (%) (Auto) 7.8 % (9.0-44.0) Monocytes (%) (Auto) 8.5 % (0.0-8.0) Neutrophils # (Auto) 11.2 TH/MM3 (1.8-7.7) Monocytes # (Auto) 1.1 TH/MM3 (0-0.9) Lymphocytes % 5 % (9-44) Monocytes % 11 % (0-8) Dohle Bodies PRESENT (NONE SEEN) Platelet Estimate LOW (NORMAL) Rouleau PRESENT (NORMAL) Blood Urea Nitrogen 19 MG/DL (7-18) Albumin 3.0 GM/DL (3.4-5.0) Calcium Level 8.1 MG/DL (8.5-10.1) Alkaline Phosphatase 42 U/L (45-117) Imaging Last Impressions Abdomen/Pelvis CT 05/12/17 0941 Signed Impressions: Service Date/Time: May 10:28 - CONCLUSION: 1. Acute appendicitis with an obstructing appendicolith and significant periappendiceal inflammation and fluid stranding. 2. Advanced hepatic steatosis. 3. 12 mm right renal cyst. Crow Quintana MD Hospital Course Patient presented with sepsis, right lower quadrant pain. CT showed appendicitis with stranding. Patient was started on Zosyn. Gen. surgery was consulted. Patient underwent urgent appendectomy on 05/12. Patient's abdominal pain resolved after surgery. Sepsis, leukocytosis improving with antibiotics. Patient was cleared by general surgery, sent home with prescriptions for antibiotics as per surgical service. He will follow-up next week with general surgery to remove LELA drain. Patient was hyperglycemic in the 170s on admission. A1c was checked, 6.8. Patient was informed of diabetes diagnosis. Patient also found to have hepatic steatosis on CT as above. Patient also informed of hepatic steatosis, avoidance of alcohol, diet and lifestyle modifications. He will follow-up with primary care. For problem-based summary from most recent progress note, please see below. //Sepsis Leukocytosis 18, tachycardia 112 on admission, fever 104.1 on admission. Acute appendicitis on CT. -Lactate 1.3 on admission. -IDSA does not recommend blood cultures on patients with intra-abdominal infection. -Continue Zosyn. IV fluids. = 05/13. Doing very well postoperative day one. Afebrile today. Vital signs stable. Leukocytosis improving 13.3. Minimal LELA drain output. Patient will be discharged with an biotics as per surgical recommendations. Will follow-up early next week for removal of LELA drain. //Acute appendicitis. -CT as above with stranding. -Status post appendectomy. -LELA drain in place. -General surgery following. Follow-up for return of bowel function. = Positive flatus. Cleared by general surgery for discharge. Follow-up with general surgery next week. Patient instructed on LELA drain. //Hypertension. Blood pressure currently acceptable. We'll hold off on blood pressure meds in the setting of sepsis. Continue to monitor = continue home blood pressure medications. //Hypothyroidism. Chronic. -TSH 1.35. Continue home Synthroid. //Indirect hyperbilirubinemia. This is Gilbert syndrome. Benign. //Hepatic steatosis. -Suspect this is chronic ZAVALETA . -Patient advised to discontinue alcohol completely. Weight loss also advised. -Patient informed and conveys understanding. Follow with primary care as outpatient. //New diagnosis of diabetes.. 175. A1c 6.8. Patient is diabetic. I informed him of this. He will continue diet and lifestyle modifications will follow with primary care.. //DVT prophylaxis. SCDs. AC As per surgical service. Pt Condition on Discharge: Good Discharge Disposition: Discharge Home Discharge Time: > 30 minutes Discharge Instructions DIET: Follow Instructions for: As Tolerated, No Restrictions Activities you can perform: See Additionl Instruction Other Activity Instructions: No lifting weight more than 5 pounds. Please follow-up with surgery on Tuesday to remove drain. Follow up Referrals: Surgical - 05/20/17 with Jack Dee MD New Medications: Levofloxacin (Levaquin) 500 Mg Tablet 500 MG PO DAILY for Infection for 5 Days, #5 TAB 0 Refills Jerry Saleem MD May 13, 2017 18:42
== END 2017-05-13 17:44 | disposition home or self-care (01) | DRG 854 ==
LOC: PHEFT 09:11 → PHEDA 12:04 → PH3B 16:59
PROVIDERS: ADMIT Hospitalist; ATTEND Hospitalist
PROC: 0DTJ4ZZ Resection of Appendix, Percutaneous Endoscopic Approach (ICD-10-PCS; principal; 2017-05-12 14:21)
DX: A41.9 Sepsis, unspecified organism (principal); K35.80 Unspecified acute appendicitis; E11.649 Type 2 diabetes mellitus with hypoglycemia without coma; K76.0 Fatty (change of) liver, not elsewhere classified; I10 Essential (primary) hypertension; E03.9 Hypothyroidism, unspecified; E80.4 Gilbert syndrome; N28.1 Cyst of kidney, acquired; K38.1 Appendicular concretions; R00.0 Tachycardia, unspecified
CPT/HCPCS: 74177; 80053; 81001; 82248; 83036; 83605; 83690; 84443; 85007; 85027; 85610; 85730; 88304; 93005; 96361; 96365; J0131; J2250; J2543; J3010; J7030; J7120; Q9967